=== PATIENT | female | born 1990 | race African-American/Black ===

== ENCOUNTER 2018-03-29 19:21 | Emergency (ER) | payer MEDICAID, OTHER ==
[~2018-03-29] VITALS: Ht 165.1 cm; Wt 63.6 kg
[2018-03-30 00:44] VITALS: BP 0/0
== END 2018-03-30 00:43 | disposition home or self-care (01) ==
LOC: ER 19:21
DX: M65.9 Synovitis and tenosynovitis, unspecified (principal); F17.200 Nicotine dependence, unspecified, uncomplicated; F12.10 Cannabis abuse, uncomplicated; R20.2 Paresthesia of skin; Z90.49 Acquired absence of other specified parts of digestive tract; Z98.890 Other specified postprocedural states
CPT/HCPCS: 99282